=== PATIENT | female | born 1950 ===

== ENCOUNTER 2020-05-20 08:14 | Emergency (ER) | payer SELFPAY ==
[~2020-05-20] VITALS: Ht 167.6 cm; Wt 49.9 kg
[2020-05-20 08:25] VITALS: BP 166/91
[2020-05-20] MEDS ORDERED: DexAMETHasone SOD PHOS 10MG/1ML VIAL INJ IV ONE (09:15)
== END 2020-05-20 10:00 | disposition left against medical advice (07) ==
LOC: ER 08:14
DX: U07.1 COVID-19 (principal); R06.03 Acute respiratory distress; J18.9 Pneumonia, unspecified organism; E11.9 Type 2 diabetes mellitus without complications; I10 Essential (primary) hypertension
CPT/HCPCS: 36415; 71045; 87426; 93005